=== PATIENT | female | born 1995 | race Caucasian/White ===

== ENCOUNTER 2017-10-04 05:14 | Emergency (ER) | payer BC ==
[2017-10-04] MEDS ORDERED: Acetaminophen 500 MG Tab PO ONE (05:32)
[2017-10-04] MEDS ORDERED: Sodium Chloride 0.9% 10 ML Syringe FLUSH PRN ×2 (05:32→07:13)
[2017-10-04] MEDS ORDERED: Sodium Chloride 0.9% 1,000 ML IV ONE ×5 (05:32→09:46)
[2017-10-04] MEDS ORDERED: Sodium Chloride 0.9% 2.5 ML Syringe FLUSH PRN ×2 (05:32→07:13)
--- NOTE | 2017-10-04 05:37 | EDM.PDOC ---
ED HPI GENERAL MEDICAL PROBLEM - General Chief Complaint: General Stated Complaint: FEVER Time Seen by Provider: 10/04/17 05:25 - History of Present Illness INITIAL COMMENTS - FREE TEXT/NARRATIVE: HISTORY AND PHYSICAL: History of present illness: The patient is a healthy 22-year-old female who is 3 months and breast-feeding her son and presents with complaints of malaise fever and breast pain that started approximately 24-36 hours ago. The patient states that she actually over produces breastmilk and is always in GERD and has breast pain but she noticed a different type of pain in her left breast over the last 12-24 hours. She did notice redness until last evening. She has had a fever and malaise for the last 24 hours. Her highest temp was 101. She has not taken any medications in the last 8-12 hours for her fevers. She has not noticed any abnormal drainage from the breast. She has no chest pain shortness of breath cough sore throat runny nose abdominal pain vomiting or diarrhea and no dysuria. The patient has not had much of an appetite or eating very much in the last 2 days she's been trying to hydrate. She otherwise is a healthy person with no significant past medical history. The patient delivered her child in [place] and has no local provider Review of systems: As per history of present illness and below otherwise all systems reviewed and negative. Past medical history: As per history of present illness and as reviewed below otherwise noncontributory. Surgical history: As per history of present illness and as reviewed below otherwise noncontributory. Social history: No reported history of drug or alcohol abuse. Family history: As per history of present illness and as reviewed below otherwise noncontributory. Physical exam: General: Well-developed well-nourished female who is nontoxic and vital signs are noted by me including the temporal 101. HEENT: Atraumatic, normocephalic, pupils reactive, negative for conjunctival pallor or scleral icterus, mucous membranes tacky throat clear, neck supple, nontender, trachea midline. There is no cervical adenopathy or nuchal rigidity Lungs: Clear to auscultation, breath sounds equal bilaterally, chest nontender. No wheezing stridor or work of breathing Heart: S1S2, regular rhythm and slightly tachycardic rate on my evaluation, no overt murmurs Abdomen: Soft, nondistended, nontender. Negative for masses or hepatosplenomegaly. Negative for costovertebral tenderness. Normoactive bowel sounds Pelvis: Deferred Genitourinary: Deferred. Rectal: Deferred. Extremities: Atraumatic, full range of motion without any defects or deficits. Neurovascular unremarkable. Neuro: Awake, alert, oriented. Cranial nerves II through XII unremarkable. Cerebellum unremarkable. Motor and sensory unremarkable throughout. Exam nonfocal. Breasts: Right breast is without any redness swelling or tenderness. The left breast is of symmetrical normal size as compared to the right and there is no discrete swelling appreciated or axillary adenopathy. From a proximally 9 to 12 o'clock position as well as at 2 o'clock position there is pretty erythema without any focal fluid collection or fluctuance and no masslike areas are appreciated. There is diffuse tenderness of the breast and there is no nipple drainage. Diagnostics: CBC CMP UA lactic acid Therapeutics: IV fluids Tylenol vancomycin Patient and significant other toe me that they are going to fly home to [place] later this afternoon but I will still give them our clinic follow-up in case they choose to stay. I've advised her to take Tylenol around the clock and to fill the prescription for the dicloxacillin and start taking that later this afternoon. Advised her on to continue breast-feeding and pumping the milk as this will help facilitate treating the infection and to follow-up when she gets home. Impression: Acute left mastitis Definitive disposition and diagnosis as appropriate pending reevaluation and review of above. left breast Pain Score (Numeric/FACES): 10 - Related Data Allergies Allergy/AdvReac Type Severity Reaction Status Date / Time No Known Allergies Allergy Verified 10/04/17 05:19 Home Meds: Home Meds . [No Known Home Meds] 10/04/17 [History] ED ROS GENERAL - Review of Systems Review Of Systems: ROS reveals no pertinent complaints other than HPI. ED EXAM, GENERAL - Physical Exam Exam: See Below (See dictation) Course - Vital Signs Last Recorded V/S: Last Vital Signs Temp 38.1 C 10/04/17 05:51 Pulse 111 H 10/04/17 05:51 Resp 18 10/04/17 05:51 BP 107/68 10/04/17 05:51 Pulse Ox 98 10/04/17 05:51 - Orders/Labs/Meds Orders: Active Orders 24 hr Category Date Time Status UA W/MICROSCOPIC [URIN] Stat Lab 10/04/17 05:30 Ordered Sodium Chloride 0.9% [Saline Flush] Med 10/04/17 05:32 Active 10 ml FLUSH ASDIRECTED PRN Sodium Chloride 0.9% [Saline Flush] Med 10/04/17 05:32 Active 2.5 ml FLUSH ASDIRECTED PRN Saline Lock Insert [OM.PC] Stat Oth 10/04/17 05:32 Ordered Medication Orders Sodium Chloride (Saline Flush) 10 ml FLUSH ASDIRECTED PRN PRN Reason: Keep Vein Open Sodium Chloride (Saline Flush) 2.5 ml FLUSH ASDIRECTED PRN PRN Reason: Keep Vein Open Labs: Laboratory Tests 10/04/17 10/04/17 10/04/17 Range/Units 05:30 05:41 05:41 WBC 6.51 (4.0-11.0) K/uL RBC 4.39 (4.30-5.90) M/uL Hgb 13.3 (12.0-16.0) g/dL Hct 38.1 (36.0-46.0) % MCV 86.8 (80.0-98.0) fL MCH 30.3 (27.0-32.0) pg MCHC 34.9 (31.0-37.0) g/dL RDW Std Deviation 36.7 (28.0-62.0) fl RDW Coeff of Taran 12 (11.0-15.0) % Plt Count 131 L (150-400) K/uL MPV 11.80 (7.40-12.00) fL Neut % (Auto) 89.2 H (48.0-80.0) % Lymph % (Auto) 6.8 L (16.0-40.0) % [place] % (Auto) 4.0 (0.0-15.0) % Eos % (Auto) 0.0 (0.0-7.0) % Baso % (Auto) 0.0 (0.0-1.5) % Neut # (Auto) 5.8 H (1.4-5.7) K/uL Lymph # (Auto) 0.4 L (0.6-2.4) K/uL [place] # (Auto) 0.3 (0.0-0.8) K/uL Eos # (Auto) 0.0 (0.0-0.7) K/uL Baso # (Auto) 0.0 (0.0-0.1) K/uL Nucleated RBC % 0.0 /100WBC Nucleated RBCs # 0 K/uL Lactate 1.5 (0.20-2.00) mmol/L Sodium (136-145) mmol/L Potassium (3.5-5.1) mmol/L Chloride (98-107) mmol/L Carbon Dioxide (21.0-32.0) mmol/L BUN (7.0-18.0) mg/dL Creatinine (0.6-1.0) mg/dL Est Cr Clr Drug Dosing mL/min Estimated GFR (MDRD) ml/min Glucose (74-106) mg/dL Calcium (8.5-10.1) mg/dL Total Bilirubin (0.2-1.0) mg/dL AST (15-37) IU/L ALT (14-63) IU/L Alkaline Phosphatase (46-116) U/L Total Protein (6.4-8.2) g/dL Albumin (3.4-5.0) g/dL Globulin (2.0-3.5) g/dL Albumin/Globulin Ratio (1.3-2.8) Urine Color YELLOW Urine Appearance CLEAR Urine pH 7.5 (5.0-8.0) Ur Specific [place] 1.015 (1.001-1.035) Urine Protein NEGATIVE (NEGATIVE) mg/dL Urine Glucose (UA) NEGATIVE (NEGATIVE) mg/dL Urine Ketones TRACE H (NEGATIVE) mg/dL Urine Occult Blood NEGATIVE (NEGATIVE) Urine Nitrite NEGATIVE (NEGATIVE) Urine Bilirubin NEGATIVE (NEGATIVE) Urine Urobilinogen 0.2 (<2.0) EU/dL Ur Leukocyte Esterase NEGATIVE (NEGATIVE) 10/04/17 Range/Units 05:41 WBC (4.0-11.0) K/uL RBC (4.30-5.90) M/uL Hgb (12.0-16.0) g/dL Hct (36.0-46.0) % MCV (80.0-98.0) fL MCH (27.0-32.0) pg MCHC (31.0-37.0) g/dL RDW Std Deviation (28.0-62.0) fl RDW Coeff of Taran (11.0-15.0) % Plt Count (150-400) K/uL MPV (7.40-12.00) fL Neut % (Auto) (48.0-80.0) % Lymph % (Auto) (16.0-40.0) % [place] % (Auto) (0.0-15.0) % Eos % (Auto) (0.0-7.0) % Baso % (Auto) (0.0-1.5) % Neut # (Auto) (1.4-5.7) K/uL Lymph # (Auto) (0.6-2.4) K/uL [place] # (Auto) (0.0-0.8) K/uL Eos # (Auto) (0.0-0.7) K/uL Baso # (Auto) (0.0-0.1) K/uL Nucleated RBC % /100WBC Nucleated RBCs # K/uL Lactate (0.20-2.00) mmol/L Sodium 138 (136-145) mmol/L Potassium 3.4 L (3.5-5.1) mmol/L Chloride 104 (98-107) mmol/L Carbon Dioxide 19.2 L (21.0-32.0) mmol/L BUN 9 (7.0-18.0) mg/dL Creatinine 1.2 H (0.6-1.0) mg/dL Est Cr Clr Drug Dosing 71.51 mL/min Estimated GFR (MDRD) 56.2 ml/min Glucose 160 H (74-106) mg/dL Calcium 8.5 (8.5-10.1) mg/dL Total Bilirubin 0.3 (0.2-1.0) mg/dL AST 16 (15-37) IU/L ALT 34 (14-63) IU/L Alkaline Phosphatase 62 (46-116) U/L Total Protein 7.3 (6.4-8.2) g/dL Albumin 3.9 (3.4-5.0) g/dL Globulin 3.4 (2.0-3.5) g/dL Albumin/Globulin Ratio 1.1 L (1.3-2.8) Urine Color Urine Appearance Urine pH (5.0-8.0) Ur Specific [place] (1.001-1.035) Urine Protein (NEGATIVE) mg/dL Urine Glucose (UA) (NEGATIVE) mg/dL Urine Ketones (NEGATIVE) mg/dL Urine Occult Blood (NEGATIVE) Urine Nitrite (NEGATIVE) Urine Bilirubin (NEGATIVE) Urine Urobilinogen (<2.0) EU/dL Ur Leukocyte Esterase (NEGATIVE) Meds: Medications Generic Name Dose Route Start Last Admin Trade Name Freq PRN Reason Stop Dose Admin Sodium Chloride 10 ml 10/04/17 05:32 Saline Flush FLUSH ASDIRECTED PRN Keep Vein Open Sodium Chloride 2.5 ml 10/04/17 05:32 Saline Flush FLUSH ASDIRECTED PRN Keep Vein Open Discontinued Medications Generic Name Dose Route Start Last Admin Trade Name Freq PRN Reason Stop Dose Admin Acetaminophen 1,000 mg 10/04/17 05:32 10/04/17 05:46 Tylenol Extra Strength PO 10/04/17 05:33 1,000 mg ONETIME ONE Administration Sodium Chloride 1,000 mls @ 999 mls/hr 10/04/17 05:32 10/04/17 05:45 Normal Saline IV 10/04/17 06:32 999 mls/hr STAT ONE Administration Vancomycin HCl 1 gm/ Sodium 250 mls @ 250 mls/hr 10/04/17 05:32 10/04/17 05: 46 Chloride IV 10/04/17 06:31 250 mls/hr ONETIME ONE Administration Departure - Departure Time of Disposition: 06:45 Disposition: Home, Self-Care 01 Condition: Good Clinical Impression: Mastitis, - Discharge Information Referrals: PCP,None [Primary Care Provider] - Forms: ED Department Discharge Additional Instructions: The following information is given to patients seen in the emergency department who are being discharged to home. This information is to outline your options for follow-up care. We provide all patients seen in our emergency department with a follow-up referral. The need for follow-up, as well as the timing and circumstances, are variable depending upon the specifics of your emergency department visit. If you don't have a primary care physician on staff, we will provide you with a referral. We always advise you to contact your personal physician following an emergency department visit to inform them of the circumstance of the visit and for follow-up with them and/or the need for any referrals to a consulting specialist. The emergency department will also refer you to a specialist when appropriate. This referral assures that you have the opportunity for followup care with a specialist. All of these measure are taken in an effort to provide you with optimal care, which includes your followup. Under all circumstances we always encourage you to contact your private physician who remains a resource for coordinating your care. When calling for followup care, please make the office aware that this follow-up is from your recent emergency room visit. If for any reason you are refused follow-up, please contact the [facility] emergency department at and ask to speak to the emergency department charge nurse. [facility] Primary care- [place] [address] Please take the antibiotics as you have been prescribed and use Tylenol and/or ibuprofen [id number] to keep her temperature down. Push hydration as we discussed and continue to pump and/or breast-feed to promote movement of the milk and treat the infection. Please contact your provider when you get home or connect with one of our clinic physicians for reevaluation and further care in the next few days and return to ER as needed and as discussed - My Orders Last 24 Hours: My Active Orders 10/04/17 05:30 UA W/MICROSCOPIC [URIN] Stat 10/04/17 05:32 Sodium Chloride 0.9% [Saline Flush] 10 ml FLUSH ASDIRECTED PRN Sodium Chloride 0.9% [Saline Flush] 2.5 ml FLUSH ASDIRECTED PRN Saline Lock Insert [OM.PC] Stat - Assessment/Plan Last 24 Hours: My Active Orders 10/04/17 05:30 UA W/MICROSCOPIC [URIN] Stat 10/04/17 05:32 Sodium Chloride 0.9% [Saline Flush] 10 ml FLUSH ASDIRECTED PRN Sodium Chloride 0.9% [Saline Flush] 2.5 ml FLUSH ASDIRECTED PRN Saline Lock Insert [OM.PC] Stat
[2017-10-04] MEDS ORDERED: diphenhydrAMINE 50 MG Cap PO STA (07:04)
[2017-10-04] MEDS ORDERED: Ketorolac 30 MG/ML SDV IVPUSH ONE (07:13)
== END 2017-10-04 10:43 | disposition home or self-care (01) ==
LOC: MW.ED 05:14
DX: N61.0 Mastitis without abscess (principal)
CPT/HCPCS: 36415; 80053; 81001; 83605; 85025; 96361; 96365; 96375; 99284; A9270; J1885; J3370; J7040; J7050; 99283

== ENCOUNTER 2022-03-29 22:49 | Inpatient (IN) | payer BC ==
[2022-03-29] MEDS: Lactated Ringers 1,000 ML IV SCH (23:00)
[2022-03-29] MEDS ORDERED: Carboprost Tromethamine 250 MCG/1 ML Amp IM PRN (23:34)
[2022-03-29] MEDS ORDERED: Butorphanol 1 MG/ML SDV IVPUSH PRN (23:34)
[2022-03-29] MEDS ORDERED: Sodium Chloride 0.9% 2.5 ML Syringe FLUSH PRN (23:34)
[2022-03-29] MEDS ORDERED: Sodium Chloride 0.9% 20 ML SDV IV PRN (23:34)
[2022-03-29] MEDS ORDERED: Methylergonovine 0.2 MG/1 ML Amp IM PRN (23:34)
[2022-03-29] MEDS ORDERED: Misoprostol 200 MCG Tab PO PRN (23:34)
[2022-03-29] MEDS ORDERED: Water For Irrigation,Sterile 1,000 ML Container IRR PRN (23:34)
[2022-03-29] MEDS ORDERED: Tranexamic Acid 1,000 MG in Sodium Chloride 0.9% 100 ML IV PRN (23:34)
[2022-03-29] MEDS ORDERED: Lidocaine 1% 50 ML MDV INJECT PRN (23:34)
[2022-03-29] MEDS ORDERED: Sodium Chloride 0.9% 10 ML Syringe FLUSH PRN (23:34)
[2022-03-29] MEDS ORDERED: Oxytocin/0.9 % Sodium Chloride 30 UNIT/500 ML BAG IV SCH (23:45)
[2022-03-30] MEDS ORDERED: Ropivacaine/PF 400 MG/200 ML PCA ONE (00:03)
[2022-03-30] MEDS: Lactated Ringers 1,000 ML IV SCH (00:17)
[2022-03-30] MEDS ORDERED: Phenylephrine HCl In 0.9% NaCl 1 MG/10 ML Vial IVPUSH PRN (00:30)
[2022-03-30] MEDS ORDERED: ePHEDrine 50 MG/ML SDV IVPUSH PRN ×2 (00:30)
[2022-03-30] MEDS ORDERED: Ropivacaine HCl/PF 400 MG in Premix Bag 1 BAG EPIDUR SCH (00:30)
[2022-03-30] MEDS ORDERED: Phenylephrine HCl In 0.9% NaCl 1 MG/10 ML Vial IVPUSH SCH (00:30)
[2022-03-30] MEDS ORDERED: Benzocaine/Menthol 20%-0.5% Spray 78 GM Cannister TOP PRN (00:56)
[2022-03-30] MEDS ORDERED: Acetaminophen 500 MG Tab PO PRN (00:56)
[2022-03-30] MEDS ORDERED: Ibuprofen 400 MG Tab PO PRN (00:56)
[2022-03-30] MEDS ORDERED: Witch Hazel Medicated Pads 40/Jar TOP PRN (00:56)
[2022-03-30] MEDS ORDERED: Bisacodyl 10 MG Supp RECTAL PRN (00:56)
[2022-03-30] MEDS ORDERED: oxyCODONE 5 MG Tab PO PRN (00:56)
[2022-03-30] MEDS ORDERED: Lanolin 100% Cream 7 GM Tube TOP PRN (00:56)
[2022-03-30] MEDS: Ibuprofen 800 MG Tab PO PRN ×3 (02:33→21:22)
[2022-03-30] MEDS: Acetaminophen 500 MG Tab PO PRN ×2 (06:26→18:19)
[2022-03-30] MEDS: Docusate Sodium 100 MG Cap PO PRN ×2 (09:36→21:22)
[2022-03-31] MEDS: Docusate Sodium 100 MG Cap PO PRN (10:03)
[2022-03-31] MEDS: Ibuprofen 800 MG Tab PO PRN (10:03)
== END 2022-03-31 14:35 | disposition home or self-care (01) | DRG 560 ==
LOC: MW.OBCHECK 22:49 → MW.OB 22:51 → MW.OBCHECK 03-30 00:37 → MW.OB 03-30 00:37 → OBSVTOIN 03-30 00:38 → MW.OB 03-30 03:46
PROVIDERS: ADMIT Obstetrics & Gynecology; ATTEND Obstetrics & Gynecology
PROC: 10E0XZZ Delivery of Products of Conception, External Approach (ICD-10-PCS; principal; 2022-03-30)
PROC: 3E0R3BZ Introduction of Anesthetic Agent into Spinal Canal, Percutaneous Approach (ICD-10-PCS; 2022-03-30)
PROC: 00HU33Z Insertion of Infusion Device into Spinal Canal, Percutaneous Approach (ICD-10-PCS; 2022-03-30)
PROC: 0HQ9XZZ Repair Perineum Skin, External Approach (ICD-10-PCS; 2022-03-30)
DX: O70.0 First degree perineal laceration during delivery (principal); Z37.0 Single live birth; Z3A.39 39 weeks gestation of pregnancy; Z20.822 Contact with and (suspected) exposure to COVID-19
CPT/HCPCS: 36415; 59025; 59409; 82803; 85014; 85018; 85027; 86592; 86850; 86900; 86901; A9270-GY; J2590; J2795; J7120; U0002

== ENCOUNTER 2025-03-04 11:51 | Emergency (ER) | payer BC | END 2025-03-04 15:00 | disposition home or self-care (01) | LOC: MW.ED 11:51 | DX: S69.92XA Unspecified injury of left wrist, hand and finger(s), initial encounter (principal); Z79.899 Other long term (current) drug therapy; Z75.3 Unavailability and inaccessibility of health-care facilities; W23.1XXA Caught, crushed, jammed, or pinched between stationary objects, initial encounter; Y93.89 Activity, other specified | CPT/HCPCS: 11760; 73130; 99283; J2003 ==